=== PATIENT | male | born 1965 | race Caucasian/White ===

== ENCOUNTER 2025-02-04 08:17 | Outpatient (AMB) | payer OTHER, SELFPAY ==
--- NOTE | 2025-02-04 08:11 | AM.OFFWIN_ITS ---
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 - While at work, the patient accidentall y fired a nail from a nail gun into his left index finger. - The injury occurred just [employer], and the patient is wearing a work glove with the nail still in place. - The patient describes intense pain whe n trying to move the affected digit. - Examination suggests the nail has pene trated the PIP joint of the left hand's second digit. Physical Exam General: Cooperative, healthy appearing, comfortable, no acute distress and well developed Orientation: Patient oriented x3 Limitations: No limitations Head: Normal to inspection Ears: Hearing grossly normal bilaterally Nose: Normal External nose present Face and sinus: Normal facial exam Eyes: Appearance normal, both eyes and all related structures Neck: Normal visual inspection and Yes full ROM Respiratory: Normal respiratory effort and able to speak in complete sentences. Skin: No rashes or lesions noted Neuro: Patient oriented x3 Extremities: Left hand second digit with a nail entering at an angle, apparently in the PIP joint, work glove still on Review of Systems Const All systems reviewed & are unremarkable except as noted in HPI and below Physical Exam Vital Signs: Last Vital Signs Pulse 71 02/04/25 08:12 BP 136/80 02/04/25 08:12 Pulse Ox 97 02/04/25 08:12 Oxygen Delivery Method Room Air 02/04/25 08:12 Assessment & Plan Assessment & Plan (1) Foreign body of finger of left hand: Code(s): S60.459A - Superficial foreign body of unspecified finger, initial encounter Qualifiers: Encounter type: initial encounter Qualified Code(s): S60.459A - Superficial foreign body of unspecified finger, initial encounter Plan: The patient should be promptly directed to the emergency department for management of the left index finger penetrating injury. This will include necessary imaging to evaluate the extent of penetration and potential vascular involvement due to the nail's placement within the PIP joint. Immediate intervention aims to prevent complications such as infection and further tissue damage. Patient requesting to go to [facility], his co-worker will drive him. Called [facility] ED with expect. Patient was informed and verbally consented to the use of an ambient scribe for clinic note documentation during this visit. Coding Level of Care Code New Pt Level 5 (63215) Diagnoses Foreign body of finger of left hand, initial encounter S60.459A Encounter type: initial encounter
[2025-02-04 08:12] VITALS: BP 136/80; PULSE 71; O2SAT 97
== END 2025-02-04 08:39 | disposition home or self-care (01) ==
PROVIDERS: Visit Provider Physician Assistant
DX: S61.241A Puncture wound with foreign body of left index finger without damage to nail, initial encounter (principal); Z04.2 Encounter for examination and observation following work accident

== ENCOUNTER → 2025-02-04 08:17 | Outpatient (BNVA) | payer OTHER, SELFPAY | PROVIDERS: Visit Provider Physician Assistant | DX: S61.241A Puncture wound with foreign body of left index finger without damage to nail, initial encounter (principal); W29.4XXA Contact with nail gun, initial encounter; Y93.9 Activity, unspecified; Y92.89 Other specified places as the place of occurrence of the external cause; Y99.0 Civilian activity done for income or pay | CPT/HCPCS: 99202 ==